=== PATIENT | female | born 1990 | race Caucasian/White ===

== ENCOUNTER 2017-06-09 16:13 | Emergency (ER) | payer BC, OTHER ==
[~2017-06-09] VITALS: Ht 157.5 cm; Wt 66.7 kg
[~2017-06-09 16:13] MED LIST: CIPR500T4 PO; MICO100S4 VG; PHEN-329 PO
[2017-06-09 17:09] VITALS: BP 142/87
[2017-06-09 17:39] LABS: APPEARANCE,URINE CLEAR (CLEAR); BILIRUBIN,URINE NEGATIVE (NEGATIVE); BLOOD, URINE NEGATIVE (NEGATIVE); COLOR,URINE YELLOW (YELLOW); LEUKOCYTE ESTERASE ,URINE NEGATIVE (NEGATIVE); NITRITE, URINE NEGATIVE (NEGATIVE); UGLUCOSE NEGATIVE (NEGATIVE)
--- NOTE | 2017-06-09 18:22 | NUR ---
PT PRESENTS TO ER W/C/O UTI S/SX; FREQUENCY, BURNING AND LBP X2 DAYS; HR EVEN AND REGULAR; PT DENIES ANY FEVER, CP, SOB, OR COUGH AT THIS TIME; PATIENT STATES PAIN OF 6/10 AT THIS TIME; VSS; PATIENT POSITIONED FOR COMFORT; HOB ELEVATED; BEDRAILS UP X2; BED DOWN. ER MD MADE AWARE OF PT STATUS.
[2017-06-09] MEDS ORDERED: KETOROLAC 30 MG/ML VIAL IM ONE (18:30)
[2017-06-09] MEDS ORDERED: KETOROLAC 30 MG/ML VIAL ONE (18:41)
[2017-06-09 18:55] VITALS: BP 133/86
--- NOTE | 2017-06-09 18:55 | NUR ---
Patient discharged with v/s stable. Written and verbal after care instructions given and explained. Patient alert, oriented and verbalized understanding of instructions. Ambulatory with steady gait. All questions addressed prior to discharge. ID band removed. Patient advised to follow up with PMD. Rx of IBUPROFEN, DIFLUCAN, BACLOFEN given. Patient educated on indication of medication including possible reaction and side effects. Opportunity to ask questions provided and answered.
== END 2017-06-09 18:55 | disposition home or self-care (01) ==
LOC: MED 16:13
DX: N76.0 Acute vaginitis (principal); N39.0 Urinary tract infection, site not specified; M54.6 Pain in thoracic spine; Z88.8 Allergy status to other drugs, medicaments and biological substances
CPT/HCPCS: 81003; 81025; 96372; 99284; J1885